=== PATIENT | male | born 1950 | race African-American/Black ===

== ENCOUNTER 2025-09-13 19:04 | Emergency (ER) | payer OTHER, MEDICARE ==
[~2025-09-13] VITALS: Ht 167.6 cm; Wt 69.0 kg
[2025-09-13 19:06] VITALS: O2SAT 98
[2025-09-13] MEDS: ZIPRASIDONE MESYLATE 20MG/VIAL IM ONE (20:15)
[2025-09-13 20:21] LABS: CLARITY URINE CLEAR (CLEAR); GLUCOSE URINE NEGATIVE (NEGATIVE); KETONES URINE NEGATIVE (NEGATIVE); LEUKOCYTE ESTERASE URINE 1+ (NEGATIVE); NITRITE URINE NEGATIVE (NEGATIVE); OCCULT BLOOD URINE NEGATIVE (NEGATIVE); PH URINE 7.5 (4.5-8.0); PROTEIN URINE NEGATIVE (NEGATIVE); SPECIFIC GRAVITY URINE 1.005 (1.005-1.030); UROBILINOGEN URINE 0.2 E.U./dL (0.2-1.0)
[2025-09-13 20:23] LABS: BASOPHILS % 0.3 % (0.0-2.0); EOSINOPHILS % 0.7 % (0.0-5.0); HEMATOCRIT. 41.8 % (42.0-52.0); HEMOGLOBIN. 13.8 g/dL (14.0-18.0); LYMPHOCYTES % 37.5 % (20.0-50.0); MEAN PLATELET VOLUME 8.3 fl (7.4-10.4); MONOCYTES % 5.2 % (2.0-8.0); NEUTROPHILS % 56.3 % (40.0-76.0); PLATELET 212 x1000/uL (130-400); RED BLOOD CELL COUNT 4.30 mill/uL (4.7-6.1); RED CELL DISTRIBUTION WIDTH 14.5 % (11.6-14.6)
[2025-09-13 20:30] LABS: *AMPHETAMINES SCREEN URINE NEGATIVE (NEGATIVE); *BARBITURATES SCREEN URINE NEGATIVE (NEGATIVE); *BENZODIAZEPINES SCREEN URINE NEGATIVE (NEGATIVE); *COCAINE SCREEN URINE NEGATIVE (NEGATIVE); CANNABINOID URINE SCREEN NEGATIVE (NEGATIVE); ECSTASY MDMA SCREEN URINE NEGATIVE (NEGATIVE); METHADONE URINE SCREEN NEGATIVE (NEGATIVE); OPIATES URINE SCREEN NEGATIVE (NEGATIVE); PHENCYCLIDINE URINE SCREEN NEGATIVE (NEGATIVE)
[2025-09-13 20:43] LABS: CREATININE 0.9 mg/dL (0.6-1.3); UREA NITROGEN BLOOD 6 mg/dL (9-23)
[2025-09-13 20:44] LABS: ETHANOL BLOOD 262 mg/dL (<10); PROTEIN TOTAL 7.9 g/dL (6.0-8.3)
[2025-09-13 20:45] LABS: ASPARTATE AMINOTRANSFERASE 43 IU/L (<34); BILIRUBIN DIRECT 0.2 mg/dL (<=3.0); BILIRUBIN TOTAL 0.7 mg/dL (0.1-1.0)
[2025-09-13] MEDS: CEFTRIAXONE SODIUM 1G VIAL IM NR (21:41)
[2025-09-13] MEDS: POTASSIUM CHLORIDE 20MEQ TABLET SR PO NR (21:41)
[2025-09-13 21:42] LABS: COLOR URINE STRAW (YELLOW)
[2025-09-13 21:43] LABS: BACTERIA URINE NONE SEEN; RBC URINE NONE SEEN /hpf (0-2); SQUAMOUS EPITHELIAL CELL URINE FEW /lpf (RARE/1+); WBC URINE 0-2 /hpf (0-2)
[2025-09-13] MEDS: SODIUM CHLORIDE 0.9% 1,000 ML IV NR (23:30)
[2025-09-13] MEDS ORDERED: IPRATROPIUM/ALBUTEROL 0.5-3(2.5)MG/3ML NEB HHN PRN (23:45)
[2025-09-13] MEDS ORDERED: PANTOPRAZOLE SODIUM 40 MG/VIAL IV SCH (23:45)
[2025-09-13] MEDS ORDERED: ACETAMINOPHEN 325MG TABLET PO PRN ×2 (23:45)
[2025-09-13] MEDS ORDERED: ONDANSETRON HCL 4MG/2ML INJ IV PRN (23:45)
[2025-09-13] MEDS ORDERED: CLONIDINE 0.1MG TABLET PO PRN (23:45)
[2025-09-13] MEDS ORDERED: LORAZEPAM 2MG/ML UD SYRINGE IV PRN ×2 (23:45)
[2025-09-14 00:22] VITALS: BP 114/62; PULSE 59; RESP 18; TEMP 37; O2SAT 98
[2025-09-14] MEDS ORDERED: MVI, ADULT NO.1 10 ML, FOLIC ACID 1 MG, THIAMINE HCL 100 MG in SODIUM CHLORIDE 0.45% 1,... IV SCH (00:30)
[2025-09-14] MEDS ORDERED: FOLIC ACID 1MG TABLET PO SCH (09:00)
[2025-09-14] MEDS ORDERED: THIAMINE HCL 100MG TABLET PO SCH (09:00)
[2025-09-14] MEDS ORDERED: TAMSULOSIN HCL 0.4MG SR CAPSULE PO SCH (09:00)
[2025-09-14] MEDS ORDERED: ENOXAPARIN 40MG/0.4ML SYR SUBCUT SCH (09:00)
[2025-09-14] MEDS ORDERED: ASPIRIN 81MG EC TABLET PO SCH (09:00)
== END 2025-09-14 00:42 | disposition short-term general hospital (02) ==
LOC: ER 19:04 → CMPBEDREQ 09-14 08:40
DX: G93.40 Encephalopathy, unspecified (principal); F10.129 Alcohol abuse with intoxication, unspecified; Y90.8 Blood alcohol level of 240 mg/100 ml or more; Z79.899 Other long term (current) drug therapy
CPT/HCPCS: 80076; 80305; 80048; 81003; 80320; 82140; 85025; 36415; 70450; 96360; 96372; 99285; J0696; J3486; J3411; J3490; G0480